=== PATIENT | male | born 1990 | race Caucasian/White ===

== ENCOUNTER 2020-06-09 11:23 | Outpatient (REF) | payer OTHER, SELFPAY ==
[2020-06-09 14:24] LABS: SARS COV2 PCR INHOUSE NEGATIVE (Negative)
== END 2020-06-09 11:24 | disposition home or self-care (01) ==
LOC: HO.LAB 11:23
PROVIDERS: Visit Provider Internal Medicine
DX: Z20.822 Contact with and (suspected) exposure to COVID-19 (principal)
CPT/HCPCS: C9803; U0003